=== PATIENT | female | born 1945 | race African-American/Black ===

== ENCOUNTER 2025-02-05 15:21 | Inpatient (IN) | payer MEDICARE, MEDICAID ==
[~2025-02-05] VITALS: Ht 157.5 cm; Wt 85.1 kg
[~2025-02-05 15:21] MED LIST: APIX5TAB PO; DILT180C87 PO; LIP40 PO; PANT40TA51 PO
[2025-02-05 16:01] VITALS: PULSE 77; RESP 15; O2SAT 96
[2025-02-05] MEDS: ALBUTEROL (0.083%) 2.5MG/3ML NEB HHN SCH (16:01)
[2025-02-05 16:12] LABS: BG DEOXYHEMOGLOBIN 20.4 % (0.0-5.0)
[2025-02-05 16:13] VITALS: PULSE 88; RESP 16; O2SAT 96
[2025-02-05 16:22] LABS: BASOPHILS % 1.0 % (0.0-2.0); EOSINOPHILS % 4.5 % (0.0-5.0); HEMATOCRIT. 35.8 % (36.0-48.0); HEMOGLOBIN. 11.7 g/dL (12.0-16.0); LYMPHOCYTES % 28.5 % (20.0-50.0); MEAN PLATELET VOLUME 9.0 fl (7.4-10.4); MONOCYTES % 12.7 % (2.0-8.0); NEUTROPHILS % 53.3 % (40.0-76.0); PLATELET 151 x1000/uL (130-400); RED BLOOD CELL COUNT 3.89 mill/uL (4.2-5.4); RED CELL DISTRIBUTION WIDTH 14.4 % (11.6-14.6)
[2025-02-05 16:33] LABS: INR 1.1
[2025-02-05 16:35] LABS: CREATININE 0.7 mg/dL (0.6-1.0)
[2025-02-05 16:36] LABS: TROPONIN I HIGH SENSITIVITY 10 ng/L (3.0-34); UREA NITROGEN BLOOD 14 mg/dL (9-23)
[2025-02-05 16:37] LABS: ASPARTATE AMINOTRANSFERASE 17 IU/L (<34)
[2025-02-05 16:38] LABS: BILIRUBIN DIRECT 0.1 mg/dL (<=3.0); BILIRUBIN TOTAL 0.4 mg/dL (0.1-1.0); PROTEIN TOTAL 7.2 g/dL (6.0-8.3)
[2025-02-05 16:40] VITALS: PULSE 88; RESP 16; O2SAT 96
[2025-02-05] MEDS ORDERED: AZITHROMYCIN 250 MG in DEXT 5% WATER 250 ML IV SCH (17:15)
[2025-02-05] MEDS: METHYLPREDNISOLONE SOD SUCC 125MG/2ML (ACT-O-VIAL) IV ONE (17:23)
[2025-02-05] MEDS: AZITHROMYCIN 500MG/250ML 250 ML IV SCH (17:45)
[2025-02-05] MEDS ORDERED: ACETAMINOPHEN 325MG TABLET PO PRN ×2 (18:15)
[2025-02-05] MEDS ORDERED: CLONIDINE 0.1MG TABLET PO PRN (18:15)
[2025-02-05] MEDS ORDERED: IPRATROPIUM/ALBUTEROL 0.5-3(2.5)MG/3ML NEB HHN PRN (18:15)
[2025-02-05] MEDS ORDERED: GUAIFENESIN 200MG/10ML SUGAR FREE UDC PO PRN (18:15)
[2025-02-05] MEDS ORDERED: DOCUSATE SODIUM 100MG CAPSULE PO PRN (18:15)
[2025-02-05] MEDS: FUROSEMIDE 20MG TABLET PO SCH (19:00)
[2025-02-05 20:00] VITALS: BP_SYST 116; BP_SYST 131; BP_DIAS 52; BP_DIAS 70; PULSE 66; PULSE 85; RESP 18; TEMP 35.6; O2SAT 94; O2SAT 99
[2025-02-05 20:20] VITALS: BP 131/78; PULSE 85; RESP 18; TEMP 36.6404
[2025-02-05] MEDS ORDERED: APIXABAN 5 MG TABLET PO SCH (21:00)
[2025-02-05] MEDS: ATORVASTATIN CALCIUM 40MG TABLET PO SCH (21:37)
[2025-02-05] MEDS: DILTIAZEM HCL 180MG CAPSULE ER 24HR PO SCH (21:38)
[2025-02-05] MEDS: PANTOPRAZOLE 40MG DR TABLET PO SCH (21:39)
[2025-02-05] MEDS: MAGNESIUM 1 G PREMIX 100 ML IV SCH (21:45)
[2025-02-05] MEDS: ENOXAPARIN 80MG/0.8ML SYR SUBCUT SCH (22:59)
[2025-02-05] MEDS ORDERED: IOHEXOL-350 100 ML BOTTLE ONE (23:28)
[2025-02-06] VITALS: BP 134/84; PULSE 71; RESP 18; TEMP 36.4; O2SAT 96
[2025-02-06 00:42] LABS: CLARITY URINE CLEAR (CLEAR); COLOR URINE YELLOW (YELLOW); PH URINE 5.0 (4.5-8.0); SPECIFIC GRAVITY URINE 1.063 (1.005-1.030)
[2025-02-06 00:43] LABS: GLUCOSE URINE 1+ (NEGATIVE); KETONES URINE NEGATIVE (NEGATIVE); NITRITE URINE NEGATIVE (NEGATIVE); OCCULT BLOOD URINE NEGATIVE (NEGATIVE); PROTEIN URINE 1+ (NEGATIVE); UROBILINOGEN URINE 1.0 E.U./dL (0.2-1.0)
[2025-02-06 00:44] LABS: LEUKOCYTE ESTERASE URINE NEGATIVE (NEGATIVE)
[2025-02-06 00:45] LABS: WBC URINE 0-2 /hpf (0-2)
[2025-02-06 00:46] LABS: BACTERIA URINE RARE; RBC URINE NONE SEEN /hpf (0-2); SQUAMOUS EPITHELIAL CELL URINE RARE /lpf (RARE/1+)
[2025-02-06 00:49] LABS: *AMPHETAMINES SCREEN URINE NEGATIVE (NEGATIVE); *BARBITURATES SCREEN URINE NEGATIVE (NEGATIVE); *BENZODIAZEPINES SCREEN URINE NEGATIVE (NEGATIVE); *COCAINE SCREEN URINE NEGATIVE (NEGATIVE); CANNABINOID URINE SCREEN NEGATIVE (NEGATIVE); ECSTASY MDMA SCREEN URINE NEGATIVE (NEGATIVE); METHADONE URINE SCREEN NEGATIVE (NEGATIVE); OPIATES URINE SCREEN NEGATIVE (NEGATIVE); PHENCYCLIDINE URINE SCREEN NEGATIVE (NEGATIVE)
[2025-02-06 02:17] LABS: CREATINE KINASE MB FRACTION 1.8 ng/mL (0.5-3.6); TROPONIN I HIGH SENSITIVITY 8 ng/L (3.0-34)
[2025-02-06 04:00] VITALS: BP 126/85; PULSE 66; RESP 18; TEMP 36.3; O2SAT 95
[2025-02-06 08:00] VITALS: BP 136/89; PULSE 87; RESP 18; TEMP 36.6; O2SAT 100
[2025-02-06 08:09] LABS: BASOPHILS % 0.1 % (0.0-2.0); EOSINOPHILS % 0.1 % (0.0-5.0); HEMATOCRIT. 36.5 % (36.0-48.0); HEMOGLOBIN. 11.9 g/dL (12.0-16.0); LYMPHOCYTES % 14.1 % (20.0-50.0); MEAN PLATELET VOLUME 9.3 fl (7.4-10.4); MONOCYTES % 1.3 % (2.0-8.0); NEUTROPHILS % 84.4 % (40.0-76.0); PLATELET 143 x1000/uL (130-400); RED BLOOD CELL COUNT 3.93 mill/uL (4.2-5.4); RED CELL DISTRIBUTION WIDTH 14.6 % (11.6-14.6)
[2025-02-06 08:18] LABS: CREATINE KINASE MB FRACTION 2.2 ng/mL (0.5-3.6)
[2025-02-06 08:19] LABS: TROPONIN I HIGH SENSITIVITY 7 ng/L (3.0-34)
[2025-02-06 08:22] LABS: CREATININE 0.6 mg/dL (0.6-1.0)
[2025-02-06 08:23] LABS: UREA NITROGEN BLOOD 11 mg/dL (9-23)
[2025-02-06 08:24] LABS: T4 FREE 0.99 ng/dL (0.89-1.76)
[2025-02-06 08:56] LABS: HEPATITIS C AB NON REACTIVE (Neg) (Negative)
[2025-02-06 12:00] VITALS: BP 114/80; PULSE 74; RESP 16; TEMP 36.5; O2SAT 100
[2025-02-06] MEDS: ASPIRIN 81MG TABLET PO SCH (13:24)
[2025-02-06] MEDS: FUROSEMIDE 40MG/4ML VIAL IVP SCH (14:41)
[2025-02-06 16:00] VITALS: BP 100/61; PULSE 71; RESP 16; TEMP 36.3; O2SAT 99
[2025-02-06 20:00] VITALS: BP 108/71; PULSE 68; RESP 16; TEMP 36.9; O2SAT 97
[2025-02-07] VITALS: BP 138/78; PULSE 64; RESP 17; TEMP 36.3; O2SAT 97
[2025-02-07 04:00] VITALS: BP 122/68; PULSE 71; RESP 16; TEMP 36.1; O2SAT 97
[2025-02-07 06:16] LABS: BASOPHILS % 0.3 % (0.0-2.0); EOSINOPHILS % 0.1 % (0.0-5.0); HEMATOCRIT. 34.2 % (36.0-48.0); HEMOGLOBIN. 11.5 g/dL (12.0-16.0); LYMPHOCYTES % 13.7 % (20.0-50.0); MEAN PLATELET VOLUME 9.4 fl (7.4-10.4); MONOCYTES % 8.1 % (2.0-8.0); NEUTROPHILS % 77.8 % (40.0-76.0); PLATELET 157 x1000/uL (130-400); RED BLOOD CELL COUNT 3.72 mill/uL (4.2-5.4); RED CELL DISTRIBUTION WIDTH 14.9 % (11.6-14.6)
[2025-02-07 06:44] LABS: CREATININE 0.8 mg/dL (0.6-1.0); UREA NITROGEN BLOOD 17 mg/dL (9-23)
[2025-02-07 08:00] VITALS: BP 121/78; PULSE 73; RESP 16; TEMP 35.8; O2SAT 98
[2025-02-07 12:00] VITALS: BP 117/69; PULSE 75; RESP 19; TEMP 36.4; O2SAT 96
[2025-02-07] MEDS: KETOROLAC 15MG/ML VIAL IV NR (14:23)
[2025-02-07 16:00] VITALS: BP 121/75; PULSE 70; RESP 19; TEMP 36.6; O2SAT 97
[2025-02-07 20:00] VITALS: BP 154/64; PULSE 82; RESP 18; TEMP 36.5
[2025-02-08] VITALS: BP 136/86; PULSE 80; RESP 22; TEMP 37
[2025-02-08] MEDS ORDERED: IPRATROPIUM/ALBUTEROL 0.5-3(2.5)MG/3ML NEB HHN SCH
[2025-02-08 04:00] VITALS: PULSE 80; RESP 22; TEMP 37
[2025-02-08 07:27] LABS: BASOPHILS % 1.2 % (0.0-2.0); EOSINOPHILS % 3.5 % (0.0-5.0); HEMATOCRIT. 36.7 % (36.0-48.0); HEMOGLOBIN. 11.9 g/dL (12.0-16.0); LYMPHOCYTES % 30.7 % (20.0-50.0); MEAN PLATELET VOLUME 9.2 fl (7.4-10.4); MONOCYTES % 12.2 % (2.0-8.0); NEUTROPHILS % 52.4 % (40.0-76.0); PLATELET 154 x1000/uL (130-400); RED BLOOD CELL COUNT 3.98 mill/uL (4.2-5.4); RED CELL DISTRIBUTION WIDTH 15.0 % (11.6-14.6)
[2025-02-08 07:28] LABS: CREATININE 0.7 mg/dL (0.6-1.0)
[2025-02-08 07:29] LABS: UREA NITROGEN BLOOD 14 mg/dL (9-23)
[2025-02-08 07:30] LABS: ASPARTATE AMINOTRANSFERASE 15 IU/L (<34)
[2025-02-08 07:31] LABS: BILIRUBIN TOTAL 0.4 mg/dL (0.1-1.0); PROTEIN TOTAL 6.5 g/dL (6.0-8.3)
[2025-02-08] MEDS ORDERED: FLUT1BLS23 INH (11:02)
[2025-02-08 12:05] VITALS: BP 128/82; PULSE 89; RESP 16; TEMP 97.7
== END 2025-02-08 12:17 | disposition home or self-care (01) | DRG 291 ==
LOC: ER 15:21 → 5WST 17:18 → ENRESERV 18:53
PROVIDERS: ADMIT Internal Medicine; ATTEND Internal Medicine
DX: I11.0 Hypertensive heart disease with heart failure (principal); I50.33 Acute on chronic diastolic (congestive) heart failure; J96.02 Acute respiratory failure with hypercapnia; J96.01 Acute respiratory failure with hypoxia; J44.1 Chronic obstructive pulmonary disease with (acute) exacerbation; I48.19 Other persistent atrial fibrillation; Z79.01 Long term (current) use of anticoagulants; Z99.81 Dependence on supplemental oxygen; F17.210 Nicotine dependence, cigarettes, uncomplicated; Z95.1 Presence of aortocoronary bypass graft; Z95.2 Presence of prosthetic heart valve; Z88.8 Allergy status to other drugs, medicaments and biological substances; Z79.899 Other long term (current) drug therapy; D64.9 Anemia, unspecified; I07.1 Rheumatic tricuspid insufficiency; I25.10 Atherosclerotic heart disease of native coronary artery without angina pectoris
CPT/HCPCS: 36415; 71045; 71275; 74174; 76856; 80048; 80053; 80076; 80305; 81003; 82375; 82550; 82553; 82803; 83735; 83880; 84439; 84443; 84484; 85025; 85379; 86705; 87340; 93005; 93970; 94070; 94640; 97162; 97165; 99285; A4606; J0456; J1650; J1938; J2919; J3475; J7060; Q9967